=== PATIENT | female | born 1985 | race Hispanic/Latino ===

== ENCOUNTER 2016-11-11 21:38 | Outpatient (CLI) | payer MEDICAID ==
[2016-11-11] MEDS ORDERED: LACTATED RINGERS 1,000 ML IV ONE (21:41)
[2016-11-11 22:38] LABS: Bilirubin,Urine NEG (Negative); Blood,Urine NEG (Negative); Ketones,Urine TR mg/dL (Negative); Leukocyte Esterase,Urine NEG (Negative); Mucus,Urine 2+ /HPF; Nitrite,Urine NEG (Negative); Protein,Urine <15 mg/dL mg/dL (Negative); WBC,Urine < 1.0 /HPF (0.0-6.0)
[2016-11-11 23:00] VITALS: BP 122/68
== END 2016-11-11 23:17 | disposition home or self-care (01) ==
LOC: TRG 21:38
PROVIDERS: ATTEND Obstetrics & Gynecology
DX: Z34.93 Encounter for supervision of normal pregnancy, unspecified, third trimester (principal); Z3A.33 33 weeks gestation of pregnancy
CPT/HCPCS: 81001; J7120